=== PATIENT | female | born 1990 | race Caucasian/White ===

== ENCOUNTER 2016-07-17 12:17 | Emergency (ER) | payer OTHER ==
--- NOTE | 2016-07-17 13:12 | ED CLINICAL REPORT ---
Clinical Report - Physicians/Mid Levels [facility] [address] [place] [address] 07/17/2016 12:18 Patient: HUSAM BLACKWELL Time Seen: 12:43; initial patient contact, initial documentation, patient care assumed. Arrived- By private vehicle. Historian- patient. HISTORY OF PRESENT ILLNESS Chief Complaint: EARACHE. Modifying factors. Not worsened by anything. Not relieved by anything. This started about 1 weeks ago and is still present. Location- right ear and left ear. The pain is described as moderate. The patient has had ear pain. She has had mild right-sided ear drainage. No nasal discharge or congestion, complaint of foreign body in the ear, ear trauma or recent barotrauma. No tinnitus or sore throat. She has had sinus pressure (today). (both canals feel swollen, can't get qtip in them, started with L, and used some home remedies and it feels little better, R feels worse, and has been waking up with ear feeling wet). Similar symptoms previously: None. Recent medical care: Not recently seen/assessed. REVIEW OF SYSTEMS No fever, cough, difficulty breathing, chest pain or nausea. No vomiting. All systems otherwise negative, except as recorded above. PAST HISTORY See nurses notes. PROBLEMS: Cellulitis. Infections. Costochondritis. Atypical Chest Pain. Prior Nosebleeds. Ear Infection. Seborrheic Dermatitis. Conjunctivitis. UTI - Urinary Tract Infection. --12:47 Beatriz Lopez R.N. Otitis Externa [RuleOut]. Otitis Media [RuleOut]. --12:47 Beatriz Lopez R.N. ADDITIONAL SURGERIES: Appendectomy. . Dental Surgery. I+D infection on LLE. Tonsillectomy. [place] teeth . --12:47 Beatriz Lopez R.N. SOCIAL HISTORY Never smoker. Not exposed to second-hand smoke at home. No alcohol use or drug use. No recent travel. Is a local resident. FAMILY HISTORY Negative. ADDITIONAL NOTES The nursing notes have been reviewed with agreement regarding the chief complaint, HPI, ROS, PMH and patient medications and allergies. PHYSICAL EXAM Vital Signs: 07/17/2016 12:45 BP: 118/79. HR: 82. RR: 16. O2 saturation: 100%. Temp: 98.8 F. Pain level now: 10. Have been reviewed as normal and appear to be correct. Appearance: Alert. No acute distress. Eyes: Eyes normal inspection. Nose: Nose normal. Ear (right): Mild preauricular lymphadenopathy and postauricular lymphadenopathy. There is mild erythema of the external canal and swelling of the external canal. No material in the external canal. Right ear abnormal. Right tympanic membrane normal. Ear (left): There is mild erythema of the external canal and swelling of the external canal. No material in the external canal. Left ear abnormal. Left tympanic membrane normal. Throat: Pharynx normal. Neck: Normal inspection. Neck supple. CVS: Normal heart rate and rhythm. Heart sounds normal. Respiratory: No respiratory distress. Breath sounds normal. Back: Normal inspection. Skin: Skin warm and dry. Normal skin color. No rash. Normal skin turgor. Extremities: Extremities exhibit normal ROM. No lower extremity edema. Neuro: Oriented X 3. No motor deficit. No sensory deficit. PROGRESS AND PROCEDURES Patient counseled in person regarding the patient's stable condition and diagnosis. 13:12. Differential Diagnosis: Other possible considerations: flu, viral illness, sinusitis, allergies, aoe, aom. Above considerations are based on history and physical exam. Differential diagnosis was discussed with patient. Disposition: Discharged home in good and unchanged condition (13:12). Condition: good and stable. CLINICAL IMPRESSION Acute localized right and left otitis externa with cellulitis of the external canal. INSTRUCTIONS Do not work for two days. Warnings: GENERAL WARNINGS: Return or contact your physician immediately if your condition worsens or changes unexpectedly, if not improving as expected, or if other problems arise. Specifically return if problem worsens. Prescription Medications: Cortisporin otic suspension: Instill 4 drops into affected ear every 6 hours for 1 week. Dispense ten (10) mL. No refills. Substitution is permissible. Motrin 800 mg tablets: take 1 tablet orally every 8 hours as needed for pain. Dispense thirty (30). No refills. Substitution is permissible. Follow-up: Follow up with your doctor in about five days as needed. Call for an appointment. Summary of care provided to patient. Understanding of the discharge instructions verbalized by patient. (Electronically signed by Tamara Vann A.R.N.P. 07/17/2016 14:21)
--- NOTE | 2016-07-17 13:12 | ED NURSING NOTES ---
Clinical Report - Nurses [facility] [address] [place] [address] 07/17/2016 12:18 Patient: HUSAM BLACKWELL TRIAGE Acuity: LEVEL 4. Chief Complaint: RIGHT EAR PAIN and LEFT EAR PAIN and SINUS CONGESTION. Alert. No acute distress. SEPSIS SCREEN: Sepsis Screen. Negative (no infection suspected/documented). --12:49 Beatriz Lopez R.N. 12:45 07/17/16. BP: 118/79. HR: 82. RR: 16. O2 saturation: 100%. Temp: 98.8 F (oral). Pain level now: 08/27. --12:49 Beatriz Lopez R.N. Weight: 72.5 kg stated. Height/Length: 63 inches Per Patient. BMI: 28.3. --12:47 Beatriz Lopez R.N. Medications None. --12:46 Beatriz Lopez R.N. Allergies morphine. --12:46 Beatriz Lopez R.N. History Arrived by private vehicle. Historian: patient. Accompanied by spouse. Onset. (1 weeks ago). PAST MEDICAL HX: Immunizations: up-to-date. SOCIAL HX: Never smoker. No alcohol use or drug use. FALL RISK ASSESSMENT: Fall risk assessment completed. No fall risk identified. NUTRITIONAL RISK ASSESSMENT: The nutritional risk assessment revealed no deficiencies. FUNCTIONAL ASSESSMENT: Functional assessment: no impairments noted. LEARNING NEEDS ASSESSMENT: The learning needs assessment revealed no barriers. SKIN INTEGRITY ASSESSMENT: Skin integrity risk assessment completed. No skin integrity risk identified. --12:49 Beatriz Lopez R.N. PROBLEMS: Cellulitis. Infections. Costochondritis. Atypical Chest Pain. Prior Nosebleeds. Ear Infection. Seborrheic Dermatitis. Conjunctivitis. UTI - Urinary Tract Infection. --12:47 Beatriz Lopez R.N. Otitis Externa [RuleOut]. Otitis Media [RuleOut]. --12:47 Beatriz Lopez R.N. ADDITIONAL SURGERIES: Appendectomy. . Dental Surgery. I+D infection on LLE. Tonsillectomy. [place] teeth . --12:47 Beatriz Lopez R.N. Assessment GENERAL / NEURO / PSYCH: Alert. Oriented X 4. Appears in no acute distress. Patient appears calm and cooperative. RESPIRATORY: Respirations not labored. CVS: Capillary refill less than 2 seconds. GI / : Abdomen nontender. SKIN: Mucous membranes are pink. Skin is warm and dry. --12:49 Beatriz Lopez R.N. Interventions ID band on patient. To treatment room. --12:49 Beatriz Lopez R.N. PHYSICAL ASSESSMENT Ambulatory to room. GENERAL / NEURO / PSYCH: Alert. Appears in no acute distress. HEENT: No facial asymmetry noted. RESPIRATORY: Respirations not labored. CVS: Capillary refill less than 2 seconds. SKIN: Skin is warm and dry. --12:52 Beatriz Lopez R.N. NURSING PROGRESS NOTES 12:49 07/17/16. Two patient identifiers checked. Call light placed in reach. Bed placed in lowest position. Brakes of bed on. Patient ready for evaluation- chart flagged and BUILDING DISMANTLER notified. --12:49 Beatriz Lopez R.N. DISPOSITION / DISCHARGE Departure time: 13:20 Jul 17 2016. Condition at departure: improved and stable. No learning barriers present. Discharge instructions provided and reviewed with the patient. Reviewed medication(s) side effects, precautions, dosing and course information. Prescription(s) given to the patient. Patient verbalized understanding. Written instructions provided in [place]ese. The patient was discharged by the nurse practitioner. She was discharged home. She left the Emergency Department ambulatory and via private vehicle. Patient driving. --14:47 Beatriz Lopez R.N. Locked/Released at 07/17/2016 14:47 by Beatriz Lopez R.N.
--- NOTE | 2016-07-17 13:12 | ED NURSING NOTES ---
Clinical Report - Nurses [facility] [address] [place] [address] 07/17/2016 12:18 Patient: HUSAM BLACKWELL TRIAGE Acuity: LEVEL 4. Chief Complaint: RIGHT EAR PAIN and LEFT EAR PAIN and SINUS CONGESTION. Alert. No acute distress. SEPSIS SCREEN: Sepsis Screen. Negative (no infection suspected/documented). --12:49 Beatriz Lopez R.N. 12:45 07/17/16. BP: 118/79. HR: 82. RR: 16. O2 saturation: 100%. Temp: 98.8 F (oral). Pain level now: 08/27. --12:49 Beatriz Lopez R.N. Weight: 72.5 kg stated. Height/Length: 63 inches Per Patient. BMI: 28.3. --12:47 Beatriz Lopez R.N. Medications None. --12:46 Beatriz Lopez R.N. Allergies morphine. --12:46 Beatriz Lopez R.N. History Arrived by private vehicle. Historian: patient. Accompanied by spouse. Onset. (1 weeks ago). PAST MEDICAL HX: Immunizations: up-to-date. SOCIAL HX: Never smoker. No alcohol use or drug use. FALL RISK ASSESSMENT: Fall risk assessment completed. No fall risk identified. NUTRITIONAL RISK ASSESSMENT: The nutritional risk assessment revealed no deficiencies. FUNCTIONAL ASSESSMENT: Functional assessment: no impairments noted. LEARNING NEEDS ASSESSMENT: The learning needs assessment revealed no barriers. SKIN INTEGRITY ASSESSMENT: Skin integrity risk assessment completed. No skin integrity risk identified. --12:49 Beatriz Lopez R.N. PROBLEMS: Cellulitis. Infections. Costochondritis. Atypical Chest Pain. Prior Nosebleeds. Ear Infection. Seborrheic Dermatitis. Conjunctivitis. UTI - Urinary Tract Infection. --12:47 Beatriz Lopez R.N. Otitis Externa [RuleOut]. Otitis Media [RuleOut]. --12:47 Beatriz Lopez R.N. ADDITIONAL SURGERIES: Appendectomy. . Dental Surgery. I+D infection on LLE. Tonsillectomy. [place] teeth . --12:47 Beatriz Lopez R.N. Assessment GENERAL / NEURO / PSYCH: Alert. Oriented X 4. Appears in no acute distress. Patient appears calm and cooperative. RESPIRATORY: Respirations not labored. CVS: Capillary refill less than 2 seconds. GI / : Abdomen nontender. SKIN: Mucous membranes are pink. Skin is warm and dry. --12:49 Beatriz Lopez R.N. Interventions ID band on patient. To treatment room. --12:49 Beatriz Lopez R.N. PHYSICAL ASSESSMENT Ambulatory to room. GENERAL / NEURO / PSYCH: Alert. Appears in no acute distress. HEENT: No facial asymmetry noted. RESPIRATORY: Respirations not labored. CVS: Capillary refill less than 2 seconds. SKIN: Skin is warm and dry. --12:52 Beatriz Lopez R.N. NURSING PROGRESS NOTES 12:49 07/17/16. Two patient identifiers checked. Call light placed in reach. Bed placed in lowest position. Brakes of bed on. Patient ready for evaluation- chart flagged and ESCALATION ENGINEER notified. --12:49 Beatriz Lopez R.N. DISPOSITION / DISCHARGE Departure time: 13:20 Jul 17 2016. Condition at departure: improved and stable. No learning barriers present. Discharge instructions provided and reviewed with the patient. Reviewed medication(s) side effects, precautions, dosing and course information. Prescription(s) given to the patient. Patient verbalized understanding. Written instructions provided in [place]an. The patient was discharged by the nurse practitioner. She was discharged home. She left the Emergency Department ambulatory and via private vehicle. Patient driving. --14:47 Beatriz Lopez R.N. Locked/Released at 07/17/2016 14:47 by Beatriz Lopez R.N.
--- NOTE | 2016-07-17 14:47 | ED MED RECONCILIATION SUMMARY ---
Patient: HUSAM BLACKWELL Medication Reconciliation Report [facility] VisitID: [id number] [address] [place] [address] 25y, F Registration Date/Time: 07/17/2016 Weight: 72.5 kg Height/Length: 63 in. BMI: 28.3 ALLERGIES: morphine The patient's Home Medications are listed below: NONE. The source(s) of the original Home Medication information: Not obtained. The following Medications were given to the patient in the Emergency Department: None. The following Medications were prescribed to the patient: Cortisporin otic suspension: Instill 4 drops into affected ear every 6 hours for 1 week. Dispense ten (10) mL. No refills. Substitution is permissible. -- Tamara Vann, A.R.N.P. Motrin 800 mg tablets: take 1 tablet orally every 8 hours as needed for pain. Dispense thirty (30). No refills. Substitution is permissible. -- Tamara Vann, A.R.N.P.
--- NOTE | 2016-07-17 14:47 | ED MAR SUMMARY ---
..... Medication Administration Record [facility] [address] [place], [place] [id number] Patient: HUSAM BLACKWELL Visit ID: [id number] 25y, F Weight: 72.5 kg Height/Length: 63 in BMI: 28.3 ALLERGIES: morphine
--- NOTE | 2016-07-17 14:47 | ED DISCHARGE INSTRUCTIONS ---
Patient: HUSAM BLACKWELL General Instructions [facility] VisitID: [id number] [place] [address] 25y, F Registration Date/Time: 07/17/2016 Acute localized right and left otitis externa with cellulitis of the external canal. INSTRUCTIONS Do not work for two days. Warnings: GENERAL WARNINGS: Return or contact your physician immediately if your condition worsens or changes unexpectedly, if not improving as expected, or if other problems arise. Specifically return if problem worsens. Prescription Medications: Cortisporin otic suspension: Instill 4 drops into affected ear every 6 hours for 1 week. Dispense ten (10) mL. No refills. Substitution is permissible. Motrin 800 mg tablets: take 1 tablet orally every 8 hours as needed for pain. Dispense thirty (30). No refills. Substitution is permissible. Follow-up: Follow up with your doctor in about five days as needed. Call for an appointment. Summary of care provided to patient. Understanding of the discharge instructions verbalized by patient. ADDITIONAL INFORMATION External Ear Infection [Adult] This is an infection in the ear canal due to an overgrowth of bacteria or fungus. This often occurs a few days after water gets trapped in the ear canal (swimming or bathing). It may also occur after cleaning too deeply in the ear canal with a cotton swab or other object. Sometimes hair care products get into the ear canal and cause this problem. There may be itching, redness, drainage, or swelling of the ear canal and temporary loss of hearing. Home Care: Do not try to clean the ear canal. That could push pus and bacteria deeper into the canal. Use the drops prescribed to reduce swelling and fight the infection. If an EAR WICK was placed in the ear canal, apply drops right onto the end of the wick. The wick will draw the medicine into the ear canal even if it is swollen closed. Do not allow water to get into your ear when bathing. No swimming during this time. A cotton ball may be loosely placed in the outer ear to absorb any drainage. You may use acetaminophen (Tylenol) or ibuprofen (Motrin, Advil) to control pain, unless another medicine was prescribed. [NOTE: If you have chronic liver or kidney disease or ever had a stomach ulcer or GI bleeding, talk with your doctor before using these medicines.] Preventing Future Infections: You can usually avoid this problem by using an eardrop that removes the water from your ear canal when you feel there is water trapped there. You can get these drops over the counter (Swim Ear, Aqua Ear and other brands). Follow Up with your doctor or this facility in one week or as instructed by our staff. Get Prompt Medical Attention if any of the following occur: Ear pain becomes worse or does not begin to improve after 3 days of treatment Redness or swelling of the outer ear occurs or gets worse Headache, painful or stiff neck, Feeling drowsy or confused Fever of 100.4F (38C) or higher, or as directed by your healthcare provider Seizure Ibuprofen Oral tablet What is this medicine? IBUPROFEN (eye BYOO proe fen) is a non-steroidal anti-inflammatory drug (NSAID). It is used for dental pain, fever, headaches or migraines, osteoarthritis, rheumatoid arthritis, or painful monthly periods. It can also relieve minor aches and pains caused by a cold, flu, or sore throat. How should I use this medicine? Take this medicine by mouth with a glass of water. Follow the directions on the prescription label. Take this medicine with food if your stomach gets upset. Try to not lie down for at least 10 minutes after you take the medicine. Take your medicine at regular intervals. Do not take your medicine more often than directed. A special MedGuide will be given to you by the pharmacist with each prescription and refill. Be sure to read this information carefully each time. Talk to your cell room operator regarding the use of this medicine in children. Special care may be needed. What side effects may I notice from receiving this medicine? Side effects that you should report to your doctor or health healthcare recruiter as soon as possible: allergic reactions like skin rash, itching or hives, swelling of the face, lips, or tongue black or bloody stools, blood in the urine or in vomit breathing problems changes in vision chest pain general ill feeling or flu-like symptoms nausea or vomiting redness, blistering, peeling or loosening of the skin, including inside the mouth slurred speech or weakness on one side of the body stomach pain unexplained weight gain or swelling unusually weak or tired yellowing of eyes or skin Side effects that usually do not require medical attention (report to your doctor or health healthcare recruiter if they continue or are bothersome): constipation or diarrhea dizziness gas or heartburn stomach upset What may interact with this medicine? Do not take this medicine with any of the following medications: cidofovir ketorolac methotrexate pemetrexed This medicine may also interact with the following medications: alcohol aspirin diuretics lithium other drugs for inflammation like prednisone warfarin What if I miss a dose? If you miss a dose, take it as soon as you can. If it is almost time for your next dose, take only that dose. Do not take double or extra doses. Where should I keep my medicine? Keep out of the reach of children. Store at room temperature between 15 and 30 degrees C (59 and 86 degrees F). Keep container tightly closed. Throw away any unused medicine after the expiration date. What should I tell my health care provider before I take this medicine? They need to know if you have any of these conditions: asthma cigarette smoker drink more than 3 alcohol containing drinks a day heart disease or circulation problems such as heart failure or leg edema (fluid retention) high blood pressure kidney disease liver disease stomach bleeding or ulcers an unusual or allergic reaction to ibuprofen, aspirin, other NSAIDS, other medicines, foods, dyes, or preservatives or trying to get breast-feeding What should I watch for while using this medicine? Tell your doctor or healthcare professional if your symptoms do not start to get better or if they get worse. This medicine does not prevent heart attack or stroke. In fact, this medicine may increase the chance of a heart attack or stroke. The chance may increase with longer use of this medicine and in people who have heart disease. If you take aspirin to prevent heart attack or stroke, talk with your doctor or health healthcare recruiter. Do not take other medicines that contain aspirin, ibuprofen, or naproxen with this medicine. Side effects such as stomach upset, nausea, or ulcers may be more likely to occur. Many medicines available without a prescription should not be taken with this medicine. This medicine can cause ulcers and bleeding in the stomach and intestines at any time during treatment. Ulcers and bleeding can happen without warning symptoms and can cause . To reduce your risk, do not smoke cigarettes or drink alcohol while you are taking this medicine. You may get drowsy or dizzy. Do not drive, use machinery, or do anything that needs mental alertness until you know how this medicine affects you. Do not stand or sit up quickly, especially if you are an older patient. This reduces the risk of dizzy or fainting spells. This medicine can cause you to bleed more easily. Try to avoid damage to your teeth and gums when you brush or floss your teeth. You have been given the following additional information: External Ear Infection (Adult) Ibuprofen Oral tablet Do not work for two days. (Electronically signed by Tamara Vann A.R.N.P. 07/17/2016 14:21)
--- NOTE | 2016-07-17 14:47 | ED MAR SUMMARY ---
..... Medication Administration Record [facility] [address] [place], [place] [id number] Patient: HUSAM BLACKWELL Visit ID: [id number] 25y, F Weight: 72.5 kg Height/Length: 63 in BMI: 28.3 ALLERGIES: morphine
--- NOTE | 2016-07-17 14:47 | ED MED RECONCILIATION SUMMARY ---
Patient: HUSAM BLACKWELL Medication Reconciliation Report [facility] VisitID: [id number] [address] [place] [address] 25y, F Registration Date/Time: 07/17/2016 Weight: 72.5 kg Height/Length: 63 in. BMI: 28.3 ALLERGIES: morphine The patient's Home Medications are listed below: NONE. The source(s) of the original Home Medication information: Not obtained. The following Medications were given to the patient in the Emergency Department: None. The following Medications were prescribed to the patient: Cortisporin otic suspension: Instill 4 drops into affected ear every 6 hours for 1 week. Dispense ten (10) mL. No refills. Substitution is permissible. -- Tamara Vann, A.R.N.P. Motrin 800 mg tablets: take 1 tablet orally every 8 hours as needed for pain. Dispense thirty (30). No refills. Substitution is permissible. -- Tamara Vann, A.R.N.P.
== END 2016-07-17 13:20 | disposition home or self-care (01) ==
LOC: ED SRH 12:17
DX: H60.13 Cellulitis of external ear, bilateral (principal)

== ENCOUNTER → 2016-12-17 | Emergency (ER) | payer OTHER ==
--- NOTE | 2016-12-17 21:03 | ED NURSING NOTES ---
Clinical Report - Nurses [facility] [address] [place] [address] 12/17/2016 19:02 Patient: HUSAM BLACKWELL TRIAGE Triage time 19:10 Dec 17 2016. Acuity: LEVEL 4. Chief Complaint: HEADACHE and NAUSEA (Feels dehydrated). SEPSIS SCREEN: Sepsis Screen: negative. Negative (no infection suspected/documented). LORETO COMA SCORE: [place] Coma Scale: 15- eyes open spontaneously (4); best verbal response- oriented x 4 (5); best motor response- obeys commands (6). --19:20 Jacklyn Pimentel 19:14 12/17/16. BP: 117/75. HR: 77. RR: 20. O2 saturation: 97% on room air. Temp: 98.1 F (oral). Pain level now: 01/27. --19:20 Jacklyn Pimentel. Weight: 72.5 kg stated. Height/Length: 62 inches Per Patient. BMI: 29.3. --19:20 Jacklyn Pimentel. Medications CeleXA Oral. --19:18 Jacklyn Pimentel Loratadine Oral. --19:18 Jacklyn Pimentel. Medication/allergy information source: the patient. --19:20 Jacklyn Pimentel. Allergies Latex. --19:18 Jacklyn Pimentel Morphine and Related. --19:18 Jacklyn Pimentel. History Arrived by private vehicle. Historian: patient. Unaccompanied. Primary physician (cmar). This started today. ( Patient states she has trouble staying hydrated because she does not prefer water. She states she was working today and has headache and nausea.). PAST MEDICAL HX: Immunizations: up-to-date. Last normal menstrual period now. SOCIAL HX: Former smoker, end date 2013. No alcohol use or drug use. No infectious disease exposure. ABUSE ASSESSMENT: No report of abuse. FALL RISK ASSESSMENT: Fall risk assessment completed. No fall risk identified. NUTRITIONAL RISK ASSESSMENT: The nutritional risk assessment revealed no deficiencies. FUNCTIONAL ASSESSMENT: Functional assessment: no impairments noted. LEARNING NEEDS ASSESSMENT: The learning needs assessment revealed no barriers. SKIN INTEGRITY ASSESSMENT: Skin integrity risk assessment completed. No skin integrity risk identified. --19:20 Jacklyn Pimentel. PROBLEMS: Otitis Externa. Cellulitis. Infections. Costochondritis. Atypical Chest Pain. Prior Nosebleeds. Ear Infection. Seborrheic Dermatitis. Conjunctivitis. Pelvic Pain. Discomfort of . Immunizations. UTI - Urinary Tract Infection. --19:19 Jacklyn Pimentel. ADDITIONAL SURGERIES: Appendectomy. . Dental Surgery. I+D infection on LLE. Tonsillectomy. [place] teeth . --19:19 Jacklyn Pimentel. Interventions ID band on patient. To treatment room. --19:20 Jacklyn Pimentel. PHYSICAL ASSESSMENT Ambulatory to room. GENERAL / NEURO / PSYCH: Alert. Oriented X 4. Appears in no acute distress. HEENT: No facial asymmetry noted. Mucous membranes are pink. RESPIRATORY: Respirations not labored. CVS: Normal sinus rhythm noted. Pulses within normal limits. GI / : Abdomen soft and nontender. SKIN: Skin is warm and dry. --19:20 Jacklyn Pimentel. NURSING PROGRESS NOTES Pulse oximeter and NIBP monitor placed on patient; monitor alarms on. Reassurance given to the patient. Lights dimmed. Two patient identifiers checked. Call light placed in reach. Side rails up x 1. Bed placed in lowest position. Brakes of bed on. Patient ready for evaluation- chart flagged and ED physician notified. --19:21 Jacklyn Pimentel 19:32 12/17/2016 Site #1 started via IV in the right antecubital space with an 20g angiocath, with aseptic technique and good blood return; one attempt. Blood drawn: rainbow set. Labeled in the presence of the patient and sent to the lab. Saline lock flushed with 10 mL saline. --19:42 Jacklyn Pimentel 19:42 12/17/2016 Started bag #1 1000 mL IV Fluids IV NS (Saline); at 1000 mL/hr over 1 hour(s) via site #1 via IV pump. Allergies verified and confirmed 5 rights. IV patency established. IV site checked: no pain, redness, or swelling. IV flushed thoroughly pre- and post-medication administration. --19:42 Jacklyn Pimentel 19:43 12/17/2016 Toradol IVP 30 mg given over 1 minute(s) via site #1. Allergies verified and confirmed 5 rights. IV patency established. IV site checked: no pain, redness, or swelling. IV flushed thoroughly pre- and post-medication administration. IVP given by RN. --19:43 Jacklyn Pimentel Blood samples drawn. Patient ID band checked for patient name and birthdate: patient confirmed. Instructions provided to collect clean catch urine and patient verbalized understanding. Clean catch urine collected with return of yellow-colored clear urine; sample sent to lab for urinalysis, culture and HCG. Specimen labeled in the presence of the patient. --19:43 Jacklyn Pimentel 20:25 12/17/2016 IV Fluids IV NS Discontinued: bag #1 completed. Total amount infused: 1000 mL. IV patency established. IV site checked: no pain, redness, or swelling. IV flushed thoroughly. --20:25 Jacklyn Pimentel 20:31 12/17/16. BP: 120/80. HR: 67. RR: 20. O2 saturation: 98%. Pain level now: 07/30. --20:32 Jacklyn Pimentel. DISPOSITION / DISCHARGE 21:15 12/17/16. BP: 110/78. HR: 80. RR: 20. O2 saturation: 98% on room air. Temp: 98 F (oral). Pain level now: 07/30. --21:43 Jacklyn Pimentel 21:10 12/17/2016 Site #1 removed upon discharge. Catheter intact. Bandaid applied. --21:43 Jacklyn Pimentel 21:15 12/17/16. Condition at departure: stable. The goals identified in the patient's plan of care were met. No learning barriers present. Discharge instructions provided and reviewed with the patient. Reviewed need for increased fluid intake. Patient verbalized understanding. Written instructions provided in Kinyarwanda. ( Patient encouraged to drink plenty of fluids. Patient advised to follow up with her PCP in three days as needed. Return if your symptoms do not improve despite hydration. Patient verbalized understanding and had no additional questions at this time.). The patient was discharged by the physician. She was discharged home and unaccompanied at time of discharge. She left the Emergency Department ambulatory and via private vehicle. Patient driving. FALL RISK ASSESSMENT: Fall risk assessment completed. No fall risk identified. --21:43 Jacklyn Pimentel. Locked/Released at 12/17/2016 21:43 by Jacklyn Pimentel,
--- NOTE | 2016-12-17 21:03 | ED CLINICAL REPORT ---
Clinical Report - Physicians/Mid Levels [facility] [address] [place] [address] 12/17/2016 19:02 Patient: HUSAM BLACKWELL Time Seen: 1919; initial patient contact, initial documentation, patient care assumed. Arrived- By private vehicle. Historian- patient. HISTORY OF PRESENT ILLNESS Chief Complaint: ( dehydration). At its maximum, severity described as moderate. When seen in the E.D., severity described as moderate. Modifying factors. Not worsened by anything. Not relieved by anything. This started today and is still present. The patient has had a headache and muscle aches. (states she drinks very little water, it was hot and muggy at work, her knees aches, she has a headache, and she thinks she is dehydrated). Similar symptoms previously: None. Recent medical care: Not recently seen/assessed. REVIEW OF SYSTEMS No fever, sore throat, sinus drainage, nasal congestion or cough. No difficulty breathing, chest pain, abdominal pain, nausea or vomiting. No diarrhea or difficulty with urination. All systems otherwise negative, except as recorded above. PAST HISTORY See nurses notes. PROBLEMS: Otitis Externa. Cellulitis. Infections. Costochondritis. Atypical Chest Pain. Prior Nosebleeds. Ear Infection. Seborrheic Dermatitis. Conjunctivitis. Pelvic Pain. Discomfort of . Immunizations. UTI - Urinary Tract Infection. --19:19 Jacklyn Pimentel. ADDITIONAL SURGERIES: Appendectomy. . Dental Surgery. I+D infection on LLE. Tonsillectomy. [place] teeth . --19:19 Jacklyn Pimentel. SOCIAL HISTORY Former smoker. No alcohol use or drug use. Is a local resident. FAMILY HISTORY Negative. ADDITIONAL NOTES The nursing notes have been reviewed with agreement regarding the chief complaint, HPI, ROS, PMH and patient medications and allergies. PHYSICAL EXAM Vital Signs: 12/17/2016 19:14 BP: 117/75. HR: 77. RR: 20. O2 saturation: 97%. Temp: 98.1 F. Pain level now: 8/10. Have been reviewed as normal and appear to be correct. Appearance: Alert. No acute distress. Eyes: Pupils equal, round and reactive to light. Eyes normal inspection. ENT: Ears normal. Nose normal. Pharynx normal. Neck: Normal inspection. Neck supple. CVS: Normal heart rate and rhythm. Heart sounds normal. Pulses normal. Respiratory: No respiratory distress. Breath sounds normal. Chest nontender. Abdomen: No visible injury. Soft and nontender. Back: Normal inspection. Skin: Skin warm and dry. Normal skin color. No rash. Normal skin turgor. Extremities: Extremities exhibit normal ROM. No lower extremity edema. Neuro: Oriented X 3. No motor deficit. No sensory deficit. LABS, X-RAYS, AND EKG Laboratory Tests: UA-Culture if indicated: (FAVIAN: 12/17/2016 19:40) ( [facility] 12/17/2016 20:03) Final results Test Result Flag Units (Reference) URINE COLOR YELLOW URINE APPEARANCE CLEAR URINE GLUCOSE NEGATIVE (NEGATIVE) URINE BILIRUBIN NEGATIVE (NEGATIVE) URINE KETONE NEGATIVE (NEGATIVE) URINE SPECIFIC GRAVITY >= 1.030 (1.010-1.030) URINE PH 5.5 (5.0-8.0) URINE PROTEIN NEGATIVE (NEGATIVE) URINE UROBILINOGEN 0.2 EU/dL (0.2-1.0) URINE NITRITE NEGATIVE (NEGATIVE) URINE BLOOD 1+ (NEGATIVE) URINE LEUK ESTERASE NEGATIVE (NEGATIVE) URINE RBC 5-10 rbc/hpf (0-1) URINE WBC 3-5 wbc/hpf (0-1) URINE EPITHELIAL CELLS 5-10 EPI/hpf (0-5) URINE BACTERIA FEW (1+) (NONE SEEN) URINE COMMENT CULT NOT INDICATED 1+ MUCOUSURINE CULTURES ARE SET-UP BASED ON THE FOLLOWING CRITERIA:POSITIVE NITRITEPOSITIVE LEUKOCYTE ESTERASEGREATER THAN 10 WHITE BLOOD CELLSMODERATE (2+) OR GREATER BACTERIA Urine: (FAVIAN: 12/17/2016 19:40) ( [facility] 12/17/2016 19:52) Final results Test Result Flag Units (Reference) URINE NEGATIVE CBC w Diff: (FAVIAN: 12/17/2016 19:40) ( [facility] 12/17/2016 19:55) Final results Test Result Flag Units (Reference) WHITE BLOOD COUNT 10.7 K/uL (4.5-11.5) RED BLOOD COUNT 3.99 L M/uL (4.00-5.20) HEMOGLOBIN 12.1 gm/dL (12.0-16.0) HEMATOCRIT 35.9 L % (36.0-46.0) MEAN CELL VOLUME 90 fL (80-100) MEAN CORPUSCULAR HGB 30 pg (26-34) MEAN CORPUSCULAR HGB CONC 34 g/dL (31-37) RED CELL DISTRIBUTION WIDTH 12.4 % (11.6-14.8) PLATELET COUNT 262 K/uL (150-400) NEUTROPHIL % 59.9 % (50-75) LYMPH % 28.7 % (25-40) MONO % 8.5 % (3-14) EOSINOPHIL % 2.3 % (0-4) BASOPHIL % 0.6 % (0-2) CMP: (FAVIAN: 12/17/2016 19:40) ( MsgRcvd 12/17/2016 20:02) Final results Test Result Flag Units (Reference) GLUCOSE 90 mg/dL (70-110) BUN 18 mg/dL (7-18) CREATININE 0.8 mg/dL (0.6-1.3) Estimated GFR >60 mL/min Estimated GFR- >60 mL/min Note: Persistent reduction over 3 months in eGFR<60 mL/min/1.73 m2 defines CKD. Patients with eGFR values>=60 mL/min/1.73 m2 may also have CKD if evidence ofpersistent proteinuria. Additional information may be foundat www.kidney.org. SODIUM 142 mmol/L (136-145) POTASSIUM 3.7 mmol/L (3.5-5.1) CHLORIDE 105 mmol/L (98-107) CARBON DIOXIDE 29 mmol/L (21-32) CALCIUM 8.7 mg/dL (8.5-10.1) TOTAL PROTEIN 7.6 g/dL (6.4-8.2) ALBUMIN 3.8 g/dL (3.3-5.0) BILIRUBIN, TOTAL 0.4 mg/dL (0.0-1.0) ALKALINE PHOSPHATASE 57 U/L (46-116) AST (SGOT) 15 U/L (15-37) ALT (SGPT) 21 U/L (12-78) . PROGRESS AND PROCEDURES Course of Care: 19:30 12/17/16. pt has lupillo for >5 er visits, see report for details. Patient counseled in person regarding the patient's stable condition, test results and diagnosis. 20:57. Differential Diagnosis: Other possible considerations: psychogenic, dehydration, electrolyte imbalance, thyroid disease, flu, viral illness, substance abuse, . Above considerations are based on history, physical exam, reassessment and laboratory data. Differential diagnosis was discussed with patient. Disposition: Discharged home in good and improved condition (21:03). Condition: good and stable. CLINICAL IMPRESSION Normal exam upon presentation, while in the ED and at discharge. INSTRUCTIONS Warnings: GENERAL WARNINGS: Return or contact your physician immediately if your condition worsens or changes unexpectedly, if not improving as expected, or if other problems arise. Specifically return if problem worsens. Follow-up: Follow up with your doctor in about three days as needed. Call for an appointment. Summary of care provided to patient. Understanding of the discharge instructions verbalized by patient. (Electronically signed by Tamara Vann A.R.N.P. 12/17/2016 21:57)
--- NOTE | 2016-12-17 21:04 | ED ORDER SUMMARY ---
..... Patient: HUSAM BLACKWELL OrderSheet [facility] VisitID: [id number] [place] [address] 25y, F Registration Date/Time: 12/17/2016 ORDER SHEET Weight: 72.5 kg (stated) Allergies: Latex, Morphine and Related GENERAL ORDERS: CBC w Diff Urgent (:12/17/2016 HBivens A.R.N.P.) (Ack 19:30 AMcQuoid ER Tech1) (20:32 HSoule) CMP Urgent (:12/17/2016 HBivens A.R.N.P.) (Ack 19:30 AMcQuoid ER Tech1) (20:32 HSoule) UA-Culture if indicated Urgent (:12/17/2016 HBivens A.R.N.P.) (Ack 19:30 AMcQuoid ER Tech1) (20:32 HSoule) Urine Urgent (:12/17/2016 HBivens A.R.N.P.) (Ack 19:30 AMcQuoid ER Tech1) (20:32 HSoule) MEDICATION ORDERS: IV FLUIDS: IV NS : initial bolus 1000 mL (1000 mL/hr), then none - (NOW) (19:29 12/17/2016 HBivens A.R.N.P.) (Ack 19:31 HSoule) (19:42 HSoule) Toradol IV 30 mg (NOW) (:12/17/2016 HBivens A.R.N.P.) (Ack 19:31 HSoule) (19:43 HSoule) IV Saline Lock (:12/17/2016 HBivens A.R.N.P.) (Ack 19:31 HSoule) (19:42 HSoule) ORDER SHEET NOTES: [Electronically signed by Jacklyn Pimentel (21:43 12/17/2016)] [Electronically signed by Tamara Vann A.R.N.P. (21:57 12/17/2016)] [Electronically locked/signed by Jacklyn Pimentel (21:43 12/17/2016)]
--- NOTE | 2016-12-17 21:04 | ED ORDER SUMMARY ---
..... Patient: HUSAM BLACKWELL OrderSheet [facility] VisitID: [id number] [place] [address] 25y, F Registration Date/Time: 12/17/2016 ORDER SHEET Weight: 72.5 kg (stated) Allergies: Latex, Morphine and Related GENERAL ORDERS: CBC w Diff Urgent (:12/17/2016 HBivens A.R.N.P.) (Ack 19:30 AMcQuoid ER Tech1) (20:32 HSoule) CMP Urgent (:12/17/2016 HBivens A.R.N.P.) (Ack 19:30 AMcQuoid ER Tech1) (20:32 HSoule) UA-Culture if indicated Urgent (:12/17/2016 HBivens A.R.N.P.) (Ack 19:30 AMcQuoid ER Tech1) (20:32 HSoule) Urine Urgent (:12/17/2016 HBivens A.R.N.P.) (Ack 19:30 AMcQuoid ER Tech1) (20:32 HSoule) MEDICATION ORDERS: IV FLUIDS: IV NS : initial bolus 1000 mL (1000 mL/hr), then none - (NOW) (19:29 12/17/2016 HBivens A.R.N.P.) (Ack 19:31 HSoule) (19:42 HSoule) Toradol IV 30 mg (NOW) (:12/17/2016 HBivens A.R.N.P.) (Ack 19:31 HSoule) (19:43 HSoule) IV Saline Lock (:12/17/2016 HBivens A.R.N.P.) (Ack 19:31 HSoule) (19:42 HSoule) ORDER SHEET NOTES: [Electronically signed by Jacklyn Pimentel (21:43 12/17/2016)] [Electronically signed by Tamara Vann A.R.N.P. (21:57 12/17/2016)] [Electronically locked/signed by Jacklyn Pimentel (21:43 12/17/2016)]
--- NOTE | 2016-12-17 21:57 | ED DISCHARGE INSTRUCTIONS ---
Patient: HUSAM BLACKWELL General Instructions [facility] VisitID: [id number] [address] [place] [address] 25y, F Registration Date/Time: 12/17/2016 Normal exam upon presentation, while in the ED and at discharge. INSTRUCTIONS Warnings: GENERAL WARNINGS: Return or contact your physician immediately if your condition worsens or changes unexpectedly, if not improving as expected, or if other problems arise. Specifically return if problem worsens. Follow-up: Follow up with your doctor in about three days as needed. Call for an appointment. Summary of care provided to patient. Understanding of the discharge instructions verbalized by patient. ADDITIONAL INFORMATION Normal Exam [6Yr - Adult] Based on your or your child's exam today, there are no signs of illness or injury. Be assured that the symptoms that worried you are normal. They do not suggest any illness requiring testing or treatment at this time. Home Care: You (or your child) can return to normal activities and diet. If you or your child have new or unusual symptoms not already discussed today, contact the doctor. Follow Up with the doctor for the next routine appointment. For more information: For childrens health information: www.kidshealth.org For adult health information: www.mayoclinic.org You have been given the following additional information: Normal Exam, (Child) (Adult) (Electronically signed by Tamara Vann A.R.N.P. 12/17/2016 21:57)
--- NOTE | 2016-12-17 21:57 | ED MED RECONCILIATION SUMMARY ---
Patient: HUSAM BLACKWELL Medication Reconciliation Report [facility] VisitID: [id number] [address] [place] [address] 25y, F Registration Date/Time: 12/17/2016 Weight: 72.5 kg Height/Length: 62 in. BMI: 29.3 ALLERGIES: Latex, Morphine and Related The patient's Home Medications are listed below: THE FOLLOWING MEDICATIONS NEED TO BE RECONCILED: CeleXA Oral Loratadine Oral The source(s) of the original Home Medication information: patient The following Medications were given to the patient in the Emergency Department: IV NS IV Fluids bolus 0, then 1000 mL/hr, administered: 12/17/2016 7:42:00 PM Toradol [IVP] IVP 30 mg, administered: 12/17/2016 7:43:00 PM The following Medications were prescribed to the patient: None.
--- NOTE | 2016-12-17 21:57 | ED MAR SUMMARY ---
..... Medication Administration Record [facility] [address] [place] [address] Patient: HUSAM BLACKWELL Visit ID: [id number] 25y, F Weight: 72.5 kg Height/Length: 62 in BMI: 29.3 ALLERGIES: Morphine and Related, Latex Start 19:42 12/17/2016 Jacklyn Pimentel,, Stop 20:25 12/17/2016 Jacklyn Pimentel, Medication Administered: IV NS (SALINE), Dose: IV Fluids over 1 hour(s), Rate: 1000 mL/hr, Dispensed: 1000 mL bag, Site: #1 right AC. Medication Ordered: IV NS : initial bolus 1000 mL (1000 mL/hr), then none - (NOW). Given 19:43 12/17/2016 Jacklyn Pimentel, Medication Administered: TORADOL [IVP], Dose: 30 mg IVP over 1 minute(s), Site: #1 right AC. Medication Ordered: Toradol IV 30 mg (NOW).
--- NOTE | 2016-12-17 21:57 | ED DISCHARGE INSTRUCTIONS ---
Patient: HUSAM BLACKWELL General Instructions [facility] VisitID: [id number] [address] [place] [address] 25y, F Registration Date/Time: 12/17/2016 Normal exam upon presentation, while in the ED and at discharge. INSTRUCTIONS Warnings: GENERAL WARNINGS: Return or contact your physician immediately if your condition worsens or changes unexpectedly, if not improving as expected, or if other problems arise. Specifically return if problem worsens. Follow-up: Follow up with your doctor in about three days as needed. Call for an appointment. Summary of care provided to patient. Understanding of the discharge instructions verbalized by patient. ADDITIONAL INFORMATION Normal Exam [6Yr - Adult] Based on your or your child's exam today, there are no signs of illness or injury. Be assured that the symptoms that worried you are normal. They do not suggest any illness requiring testing or treatment at this time. Home Care: You (or your child) can return to normal activities and diet. If you or your child have new or unusual symptoms not already discussed today, contact the doctor. Follow Up with the doctor for the next routine appointment. For more information: For childrens health information: www.kidshealth.org For adult health information: www.mayoclinic.org You have been given the following additional information: Normal Exam, (Child) (Adult) (Electronically signed by Tamara Vann A.R.N.P. 12/17/2016 21:57)
--- NOTE | 2016-12-17 21:57 | ED MED RECONCILIATION SUMMARY ---
Patient: HUSAM BLACKWELL Medication Reconciliation Report [facility] VisitID: [id number] [address] [place] [address] 25y, F Registration Date/Time: 12/17/2016 Weight: 72.5 kg Height/Length: 62 in. BMI: 29.3 ALLERGIES: Latex, Morphine and Related The patient's Home Medications are listed below: THE FOLLOWING MEDICATIONS NEED TO BE RECONCILED: CeleXA Oral Loratadine Oral The source(s) of the original Home Medication information: patient The following Medications were given to the patient in the Emergency Department: IV NS IV Fluids bolus 0, then 1000 mL/hr, administered: 12/17/2016 7:42:00 PM Toradol [IVP] IVP 30 mg, administered: 12/17/2016 7:43:00 PM The following Medications were prescribed to the patient: None.
--- NOTE | 2016-12-17 21:57 | ED MAR SUMMARY ---
..... Medication Administration Record [facility] [address] [place] [address] Patient: HUSAM BLACKWELL Visit ID: [id number] 25y, F Weight: 72.5 kg Height/Length: 62 in BMI: 29.3 ALLERGIES: Morphine and Related, Latex Start 19:42 12/17/2016 Jacklyn Pimentel,, Stop 20:25 12/17/2016 Jacklyn Pimentel, Medication Administered: IV NS (SALINE), Dose: IV Fluids over 1 hour(s), Rate: 1000 mL/hr, Dispensed: 1000 mL bag, Site: #1 right AC. Medication Ordered: IV NS : initial bolus 1000 mL (1000 mL/hr), then none - (NOW). Given 19:43 12/17/2016 Jacklyn Pimentel, Medication Administered: TORADOL [IVP], Dose: 30 mg IVP over 1 minute(s), Site: #1 right AC. Medication Ordered: Toradol IV 30 mg (NOW).
== END ==
LOC: ED SRH 19:02
DX: E86.0 Dehydration (principal); Z87.891 Personal history of nicotine dependence
CPT/HCPCS: 90004; 90100; 93070; 95059